=== PATIENT | female | born 1950 | race African-American/Black ===

== ENCOUNTER → 2016-06-28 | Outpatient (CLI) | payer MEDICARE, MEDICAID ==
[~2016-06-28] MED LIST: ALBUTEROL SULF8.5 GM INH; AMLODIPINE BESY10 MG ORAL; AMOXICILLIN500 MG ORAL; AMOXICILLIN875 MG PO; ASPIR 8181 MG ORAL; CALCIUM CARBON650 M3 PO; CRESTOR10 M2 ORAL; DIPHENHYDRAMINE25 M1 ORAL; DOC-Q-LACE100 M1 ORAL; ENALAPRIL MALEA20 MG ORAL; FOLIC ACID1 MG ORAL; GABAPENTIN300 MG ORAL; GLIPIZIDE XL5 MG ORAL; IBUPROFEN600 MG ORAL; IMIPRAMINE HCL25 MG PO; KOMBIGLYZE XR1 EACH PO; LORAZEPAM1 MG ORAL; MELOXICAM7.5 MG PO; NITROSTAT0.4 M1 SL; NORCO 5-325 TA1 EACH ORAL; OMEPRAZOLE20 M2 ORAL; ONDANSETRON ODT4 MG ORAL; PERCOCET 10-321 EACH ORAL; PHENERGAN25 M1 ORAL; PROTONIX40 MG ORAL; SERTRALINE HCL50 MG ORAL; SYMBICORT 1601 PUFFS INH; TOPIRAMATE25 MG ORAL; ZOFRAN ODT4 MG ORAL; ZOLPIDEM TARTRA10 MG ORAL
--- NOTE | 2016-06-28 15:59 | GI Progress Note ---
Assessment/Plan Problems: (1) IBS (irritable bowel syndrome) ICD Codes: K58.9 - Irritable bowel syndrome without diarrhea SNOMED: 35560510, 36878508 (2) COPD (chronic obstructive pulmonary disease) ICD Codes: J44.9 - COPD (chronic obstructive pulmonary disease) SNOMED: 32883927 (3) Diabetes mellitus ICD Codes: E11.9 - Diabetes mellitus SNOMED: 85742810 (4) Intractable vomiting ICD Codes: R11.10 - Vomiting, unspecified SNOMED: 438738841 (5) Abdominal pain Status: stable Status Narrative Seen with Dr. Garcia. Assessment/Plan pt scheduled for EGD/colonoscopy 07/02/16 - CLD & [employer] prep instructions given and acknowledged. - NPO MN prior to procedure date. Subjective Subjective GERD Diarrhea, with hx of IBS-D Abdominal Bloating here to schedule repeat colonoscopy Objective T 97.8 BP 127/83 P 98 98 RA Weight (Pounds): 211 General Appearance: no apparent distress, alert Cardiovascular: normal rate Respiratory/Chest: accessory muscle use, other - COPD Abdominal Exam: normal bowel sounds, non tender, soft Extremities: other - ambulates short distances with SOB Objective intentional weight loss Liss Moy N.P. Jun 28, 2016 15:59
[2016-06-28 16:06] VITALS: BP 127/83
== END | disposition home or self-care (01) ==
LOC: PAN 14:21
DX: K58.9 Irritable bowel syndrome, unspecified (principal); J44.9 Chronic obstructive pulmonary disease, unspecified; E11.9 Type 2 diabetes mellitus without complications; R11.10 Vomiting, unspecified
CPT/HCPCS: 99211

== ENCOUNTER → 2016-07-02 | Day surgery (SDC) | payer MEDICARE, MEDICAID ==
[~2016-07-02] VITALS: Ht 170.2 cm; Wt 94.8 kg
[2016-07-02] VITALS (8 sets, daily range): BP systolic 112–144; BP diastolic 64–82
[~2016-07-02] MED LIST changes: +DiphenhydrAMINE 50mg/ml Inj IVP PRN; +LR 1000ml 1,000 ML IVLG SCH; +LR 1000ml ONE; +Labetalol 5mg/ml 20ml vial IV PRN; +Lidocaine 1% MPF 10mg/ml 5ml ONE; +Propofol 10mg/ml 20ml IV ONE
--- NOTE | 2016-07-02 08:03 | Anethesia Preoperative Eval ---
Anesthesia Pre-op PMH/ROS General Date of Evaluation: Jul 02, 2016 Anesthesiologist: Deepak ASA Score: ASA 3 Mallampati Score Class I : Soft palate, uvula, fauces, pillars visible Class II: Soft palate, uvula, fauces visible Class III: Soft palate, base of uvula visible Class IV: Only hard plate visible Mallampati Classification: Class III Surgeon: Radha Diagnosis: Screening Surgical Procedure: EGD and colonoscopy Anesthesia History: none Family History: no anesthesia problems Allergies: Coded Allergies: SIMVASTATIN (Verified Allergy, Severe, 04/01/14) ESTROGENS, CONJUGATED (Verified Allergy, Intermediate, 07/02/16) PALMS OF HANDS AND FEET TURN RED,ITCHING WITH BLISTERS Uncoded Allergies: red meat (Allergy, Severe, 01/29/14) pt has diverticulitis and gets severe nausea and vomiting Medications: see eMAR Past Medical History Cardiovascular: Reports: CAD, HTN, other - HLD, Denies: IA, arrhythmia, valve dz Pulmonary: Reports: COPD, asthma, Denies: MARGRET, other Gastrointestinal/Genitourinary: Reports: GERD, Denies: CRI, ESRD, other Neurologic/Psychiatric: Reports: CVA, depression/anxiety, other - epilepsy, Denies: TIA, dementia Endocrine: Denies: DM, hypothyroidism, other, steroids HEENT: Denies: [place] (L[place] (R), cataract (L), cataract (R), glaucoma, other Hematology/Immune: Reports: anemia, Denies: DVT, bleeding disorder, other Musculoskeletal/Integumentary: Reports: OA, Denies: DDD, DJD, RA, edema, other Other: obesity PSxH Narrative: BENSON, BTL, lassik Anesthesia Pre-op Phys. Exam Physician Exam see chart Constitutional: NAD Cardiovascular: RRR Respiratory: CTA Airway Exam Mallampati Score: Class II Anesthesia Pre-op A/P Labs see chart Studies Pre-op Studies: EKG - sr Risk Assessment & Plan Assessment: ASA III Plan: MAC Status Change Before Surgery: No Pre-Antibiotics Drug: N/A MARILYNN NATH M.D. Jul 02, 2016 08:03
--- NOTE | 2016-07-02 08:13 | Immediate Post-Op Evaluation ---
Immediate Post-Op Evalulation Immediate Post-Op Evalulation Procedure: EGD and colonoscoopy Date of Evaluation: Jul 02, 2016 Time of Evaluation: 10:38 IV Fluids: 600 Blood Products: 0 Estimated Blood Loss: 0 Urinary Output: 0 Blood Pressure Systolic: 129 Blood Pressure Diastolic: 86 Pulse Rate: 76 Respiratory Rate: 17 O2 Sat by Pulse Oximetry: 100 Temperature (Fahrenheit): 97.3 Pain Score (1-10): 0 Nausea: No Vomiting: No Complications 0 Patient Status: awake, reacts, patent, none Hydration Status: adequate Drug: N/A MARILYNN NATH M.D. Jul 02, 2016 08:13
--- NOTE | 2016-07-02 08:13 | 48 Hour Post Anesthesia Eval ---
Post Anesthesia Evaluation Procedure: EGD and colonoscoopy Date of Evaluation: Jul 02, 2016 Blood Pressure Systolic: 144 0: 64 Pulse Rate: 76 Respiratory Rate: 18 O2 Sat by Pulse Oximetry: 98 Airway: patent Nausea: No Vomiting: No Pain Intensity: 0 Hydration Status: adequate Cardiopulmonary Status: at baseline Mental Status/LOC: patient returned to baseline Post-Anesthesia Complications: 0 Follow-up care needed: ready to discharge MARILYNN NATH M.D. Jul 02, 2016 08:13
--- NOTE | 2016-07-02 09:41 | Short Stay Surgery H&P ---
History of Present Illness History of Present Illness Chief Complaint see recent office consult LAURA Mariola Brush is a 66 year old female who was admitted on for Abdominal Pain ,Diarrhea Patient History Allergies: Coded Allergies: SIMVASTATIN (Verified Allergy, Severe, 04/01/14) ESTROGENS, CONJUGATED (Verified Allergy, Intermediate, 07/02/16) PALMS OF HANDS AND FEET TURN RED,ITCHING WITH BLISTERS Uncoded Allergies: red meat (Allergy, Severe, 01/29/14) pt has diverticulitis and gets severe nausea and vomiting PAST MEDICAL HISTORY: Past Surgeries: Social History: Medication History Scheduled Amlodipine Besylate* (Amlodipine Besylate*), 10 MG ORAL DAILY, (Reported) Aspirin* (Aspir 81*), 81 MG ORAL DAILY, (Reported) Calcium Carbonate (Calcium Carbonate), 650 MG PO DAILY, (Reported) Docusate Sodium (Doc-Q-Lace), 100 MG ORAL DAILY, (Reported) Enalapril Maleate* (Enalapril Maleate*), 20 MG ORAL DAILY, (Reported) Folic Acid* (Folic Acid*), 1 MG ORAL DAILY, (Reported) Gabapentin* (Gabapentin*), 300 MG ORAL THREE TIMES A DAY, (Reported) Pantoprazole* (Protonix*), 40 MG ORAL DAILY, (Reported) Saxagliptin Hcl/Metformin Hcl (Kombiglyze Xr 2.5-1,000 Mg Tab), 1 EACH PO DAILY, (Reported) Topiramate* (Topamax*), 25 MG ORAL BID, (Reported) Scheduled PRN Albuterol Sulfate* (Albuterol Sulfate Mdi*), 2 PUFF INH Q4H PRN for Shortness of Breath, (Reported) Diphenhydramine Hcl* (Diphenhydramine Hcl*), 25 MG ORAL Q6H PRN for Itching, ( Reported) Zolpidem Tartrate* (Zolpidem Tartrate*), 10 MG ORAL BEDTIME PRN for Insomnia, ( Reported) Discontinued Medications Amoxicillin (Amoxicillin), 875 MG PO Q12H Discontinued Reason: Therapy completed Amoxicillin* (Amoxil*), 500 MG ORAL THREE TIMES A DAY Discontinued Reason: Therapy completed Budesonide/Formoterol Fumarate (Symbicort 160-4.5 Mcg Inhaler), 1 PUFF INH TWICE A DAY, (Reported) Discontinued Reason: Pt stopped taking med Glipizide (Glipizide Xl), 5 MG ORAL DAILY, (Reported) Discontinued Reason: Pt stopped taking med Ibuprofen* (Motrin*), 600 MG ORAL Q8H PRN for For Pain Discontinued Reason: Pt stopped taking med Imipramine Hcl (Imipramine Hcl), 25 MG PO DAILY, (Reported) Discontinued Reason: Pt stopped taking med Meloxicam* (Meloxicam*), 7.5 MG PO DAILY, (Reported) Discontinued Reason: Pt stopped taking med Nitroglycerin (Nitrostat), 0.4 MG SL for Prn Chest Pain, (Reported) Discontinued Reason: Pt stopped taking med Sertraline Hcl* (Zoloft*), 50 MG ORAL DAILY, (Reported) Discontinued Reason: Pt stopped taking med Physical Exam Vital Signs Last Vital Signs Date Time Temp Pulse Resp B/P Pulse Ox O2 Delivery O2 Flow Rate FiO2 07/02/16 08:44 97.6 72 18 112/69 95 Room Air Plan Attestation Are the patient's medical conditions optimized for surgery? FRANTZ LANDON Jul 02, 2016 09:41
--- NOTE | 2016-07-02 09:41 | Pre-Procedure Note/Attestation ---
Pre-Procedure Note/Attestation Complete Prior to Procedure Planned Procedure: not applicable Procedure Narrative: egd/colonoscopy Indications for Procedure Pre-Operative Diagnosis: gerd, screening colon, Attestation I attest that I discussed the nature of the procedure; its benefits; risks and complications; and alternatives (and the risks and benefits of such alternatives ), prior to the procedure, with the patient (or the patient's legal veterans employment representative). I attest that, if there was a reasonable possibility of needing a blood transfusion, the patient (or the patient's legal veterans employment representative) was given the [facility] standardized written summary, pursuant to the [place] Blood Safety Act ([place] Health and Safety Code # 1645, as amended). I attest that I re-evaluated the patient just prior to the surgery and that there has been no change in the patient's H&P, except as documented below: FRANTZ LANDON Jul 02, 2016 09:41
--- NOTE | 2016-07-02 09:56 | Cardiology Report ---
APPROVED REPORT EKG Measurement Heart [id number] Normal sinus rhythm Normal ECG
--- NOTE | 2016-07-02 10:30 | Endoscopy Procedure Note ---
Endoscopy Procedure Note Indication for Procedure: screening colon, GERD Procedures Performed: EGD, colonoscopy Operative Findings/Diagnosis: 5 colon polyps Specimen: yes Pt Tolerated Procedure Well: Yes Estimated Blood Loss: none Anesthesiologist: sherry Anesthesia: MAC Implant(s) used?: No 50 yrs or older w/o bx or poly: No 10yrs. F/U not recommended: Yes If not recommended, why?: Above average risk 10 yrs. F/U needed: Yes 18 years or older w/prev. colo: Yes <3yrs. since last colonoscopy: No FRANTZ LANDON Jul 02, 2016 10:30
--- NOTE | 2016-07-02 20:38 | Procedure Note ---
DATE OF PROCEDURE: 07/02/2016 SURGEON: Syed Garcia M.D. PROCEDURE: Upper endoscopy with biopsy and colonoscopy with biopsy and snare polypectomy. ANESTHESIA: Dr. Debbie Sotelo. INSTRUMENT: Olympus adult flexible upper endoscope and colonoscope INDICATION: Screening colonoscopy, history of colonic polyps, and chronic acid reflux disease. The procedure, risks, benefits, and possible consequences, including hemorrhage, aspiration, perforation and infection, and alternative treatments, were explained to the patient/legal guardian by Dr. Syed Garcia and the patient/legal guardian understood and accepted these risks. DESCRIPTION OF PROCEDURE: After informed consent was obtained and the patient was adequately sedated, Olympus upper endoscope was advanced from mouth into the second portion of the duodenum and retroflexion was performed in the stomach. The patient had multiple antral erosions. There was diffuse gastritis. In the esophagus, there was suspicious Cherry esophagitis. Random biopsy from antrum and body was obtained to rule out H. pylori infection. Also brushing of the esophageal white patches were obtained to evaluate for Cherry esophagitis. At this time, the upper endoscope was retrieved and the patient was turned over for colonoscopy. First, rectal exam was performed, which shows evidence of external hemorrhoids. Then, the scope was advanced from the rectum into the cecum documented by appendiceal orifice, ileocecal valve, upper quadrant palpation. Quality of prep was fair. The patient had diffuse melanosis coli. There were total of five polyps removed with this colonoscopic examination, two in ascending and two in transverse, which were all removed with the cold biopsy forceps technique and they were diminutive polyps. A larger polyp was in the rectum, measured roughly about 4 to 5 mm, removed with cold snare polypectomy technique. The patient had evidence of diverticulosis mostly in the left colon compared to right. Retroflexion of rectum showed evidence of internal hemorrhoids. SUMMARY OF FINDINGS: 1. Multiple antral erosions. 2. Possible Cherry esophagitis, status post brush biopsy. 3. Five colonic polyps removed. See above for details. 4. Diverticulosis. 5. Melanosis coli. 6. Internal and external hemorrhoids. RECOMMENDATIONS: Follow up biopsies and treat accordingly. Syed Garcia M.D. DR: MISSY JOB#: [id number] CC: LIEN
== END | disposition home or self-care (01) ==
LOC: GAS 07:56
DX: Z12.11 Encounter for screening for malignant neoplasm of colon (principal); Z86.010 Personal history of colon polyps; D12.2 Benign neoplasm of ascending colon; D12.3 Benign neoplasm of transverse colon; D12.8 Benign neoplasm of rectum; K57.30 Diverticulosis of large intestine without perforation or abscess without bleeding; K63.89 Other specified diseases of intestine; K64.8 Other hemorrhoids; K64.4 Residual hemorrhoidal skin tags; K21.9 Gastro-esophageal reflux disease without esophagitis; K29.70 Gastritis, unspecified, without bleeding; K25.9 Gastric ulcer, unspecified as acute or chronic, without hemorrhage or perforation; K31.9 Disease of stomach and duodenum, unspecified; I25.10 Atherosclerotic heart disease of native coronary artery without angina pectoris; I10 Essential (primary) hypertension; E78.5 Hyperlipidemia, unspecified; J44.9 Chronic obstructive pulmonary disease, unspecified; J45.909 Unspecified asthma, uncomplicated; F32.9 Major depressive disorder, single episode, unspecified; F41.9 Anxiety disorder, unspecified; G40.909 Epilepsy, unspecified, not intractable, without status epilepticus; D64.9 Anemia, unspecified; M19.90 Unspecified osteoarthritis, unspecified site; E66.9 Obesity, unspecified; Z90.710 Acquired absence of both cervix and uterus; Z91.018 Allergy to other foods; Z91.09 Other allergy status, other than to drugs and biological substances; Z79.82 Long term (current) use of aspirin; Z79.899 Other long term (current) drug therapy
CPT/HCPCS: 43239; 45380; 45385; 82962; 93005; J2704; J7120; 94003; 94150

== ENCOUNTER → 2016-07-17 | Outpatient (CLI) | payer MEDICARE, MEDICAID ==
[~2016-07-17] MED LIST changes: -DiphenhydrAMINE 50mg/ml Inj IVP PRN; -LR 1000ml 1,000 ML IVLG SCH; -LR 1000ml ONE; -Labetalol 5mg/ml 20ml vial IV PRN; -Lidocaine 1% MPF 10mg/ml 5ml ONE; -Propofol 10mg/ml 20ml IV ONE
[2016-07-17 10:55] VITALS: BP 125/86
--- NOTE | 2016-07-17 12:08 | GI Progress Note ---
Assessment/Plan Problems: (1) Abdominal pain (2) IBS (irritable bowel syndrome) ICD Codes: K58.9 - Irritable bowel syndrome without diarrhea SNOMED: 56737991, 61443755 (3) Nausea, vomiting, and diarrhea ICD Codes: R19.7 - Diarrhea, unspecified; R11.2 - Nausea with vomiting, unspecified SNOMED: 1757521 (4) Colonic polyp ICD Codes: K63.5 - Polyp of colon SNOMED: 98323201 (5) Bari esophagitis ICD Codes: B37.81 - Candidal esophagitis SNOMED: 24370265 Status: stable Status Narrative Seen with Dr. Garcia. Assessment/Plan EGD/colonoscopy reviewed >> colon polyp x 5 rx linzess rx carafate cont protonix rx diflucan for esophageal bari RTC x 3 months repeat colon x 3 years The patient was seen and examined at bedside and all new and available data was reviewed in the patients chart. I agree with the above findings, impression and plan. (Patient seen earlier today. Signature stamp does not reflect patient encounter time.). -Syed Garcia MD Subjective Subjective GERD Objective Last 24 Hour Vital Signs Date Time Temp Pulse Resp B/P Pulse Ox O2 Delivery O2 Flow Rate FiO2 07/17/16 10:55 97.8 78 16 125/86 General Appearance: no apparent distress, alert Cardiovascular: normal rate Respiratory/Chest: normal breath sounds, no respiratory distress Abdominal Exam: normal bowel sounds, non tender, soft Extremities: other - wheelchair Objective Endoscopy Procedure Note Indication for Procedure: screening colon, GERD Procedures Performed: EGD, colonoscopy Operative Findings/Diagnosis: 5 colon polyps SYED GARCIA - Jul 02, 2016 10:30 Hx of PUD, gastric erosion, gastropathy, fungal esophagitis Liss Moy N.P. Jul 17, 2016 12:08 SYED GARCIA Jul 20, 2016 08:01
== END | disposition home or self-care (01) ==
LOC: PAN 10:31
DX: K58.9 Irritable bowel syndrome, unspecified (principal); R10.9 Unspecified abdominal pain; R19.7 Diarrhea, unspecified; R11.2 Nausea with vomiting, unspecified; K63.5 Polyp of colon; B37.81 Candidal esophagitis
CPT/HCPCS: 99211

== ENCOUNTER 2016-10-16 10:35 | Outpatient (CLI) | payer MEDICARE, MEDICAID ==
--- NOTE | 2016-10-16 15:56 | GI Progress Note ---
Assessment/Plan Problems: (1) Abdominal pain (2) Cherry esophagitis ICD Codes: B37.81 - Candidal esophagitis SNOMED: 07577513 (3) Colonic polyp ICD Codes: K63.5 - Polyp of colon SNOMED: 81622672 (4) IBS (irritable bowel syndrome) ICD Codes: K58.9 - Irritable bowel syndrome without diarrhea SNOMED: 93553971, 15596285 (5) Nausea, vomiting, and diarrhea ICD Codes: R19.7 - Diarrhea, unspecified; R11.2 - Nausea with vomiting, unspecified SNOMED: 7714680 Status: stable Status Narrative Discussed with Dr. Garcia. Assessment/Plan EGD/colonoscopy reviewed >> colon polyp x 5 s/p esophageal cherry tx with Diflucan refill linzess linzess stop carafate cont protonix RTC x 3 months repeat colon x 3 years Subjective Subjective abdominal bloating linzess x 1 month worked very well stopped smoking for 2 weeks, on Chantix abdominal distention last BM x 5 days Objective T 98.3 BP 121/81 P 85 95 RA denies weight loss General Appearance: no apparent distress, alert Cardiovascular: normal rate Respiratory/Chest: normal breath sounds, no respiratory distress Abdominal Exam: normal bowel sounds, non tender, soft Extremities: normal range of motion Liss Moy N.P. Oct 16, 2016 15:56
== END 2016-10-16 11:00 | disposition home or self-care (01) ==
LOC: PAN 10:35
DX: R10.9 Unspecified abdominal pain (principal); K63.5 Polyp of colon; K58.9 Irritable bowel syndrome, unspecified; R19.7 Diarrhea, unspecified; B37.81 Candidal esophagitis
CPT/HCPCS: 99211

== ENCOUNTER 2016-10-26 11:18 | Inpatient (IN) | payer MEDICARE, MEDICAID ==
[~2016-10-26] VITALS: Ht 170.2 cm; Wt 97.5 kg
[2016-10-26 12:30] VITALS: BP 131/77
--- NOTE | 2016-10-26 13:22 | History & Physical ---
History and Physical History & Physicial Vital Signs -Extended Height: 67 inches Weight: 215.5 pounds Temperature: 97.8 degrees F (oral) Pulse rate: 81 /min Pulse rhythm: regular Respirations: 12 /min O2 Sat: 97% Blood Pressure: 135/77 mm Hg Calculations Body Mass Index: 33.87 Body Surface Area (m2): 2.09 History of Present Illness Hx. Source: patient Primary complaint: FOLLOW UP Additional HPI: 66 year old female patient presents today for follow up appointment for her COPD. Patient reports a low grade fever, dizzy spells, and light headed. Patient is taking her prescribed medications as directed and is compliant. she notes significant leg swelling. she notes increase numbness Active Medications (reviewed today): CHANTIX STARTING MONTH SULY TABS (VARENICLINE TARTRATE TABS) as directed GARCINIA CAMBOGIA-CHROMIUM TABS (GARCINIA CAMBOGIA-CHROMIUM TABS) Take one tablet daily OXYCODONE HCL 30 MG ORAL TABS (OXYCODONE HCL) Take one tablet every 6 hours FLUTICASONE PROPIONATE 50 MCG/ACT NASAL SUSP (FLUTICASONE PROPIONATE) 2 puff qd CRESTOR 10 MG TABS (ROSUVASTATIN CALCIUM) 1 PO QD FARXIGA 10 MG ORAL TABS (DAPAGLIFLOZIN PROPANEDIOL) 1 tab qd ALBUTEROL SULFATE 0.083 % NEBU (ALBUTEROL SULFATE) 1 vial in HHN every 4 times daily prn SYMBICORT 160-4.5 MCG/ACT AERO (BUDESONIDE-FORMOTEROL FUMARATE) 2 puffs bid CENTRUM SILVER ULTRA WOMENS ORAL TABS (MULTIPLE VITAMINS-MINERALS) Take one tablet daily ASPIRIN ADULT LOW STRENGTH 81 MG ORAL TBEC (ASPIRIN) Take one tablet daily ZOLPIDEM TARTRATE 10 MG ORAL TABS (ZOLPIDEM TARTRATE) Take one tablet daily KOMBIGLYZE XR 2.5-1000 MG ORAL [id number] (SAXAGLIPTIN-METFORMIN) Take one tablet two times daily AMLODIPINE BESYLATE 10 MG ORAL TABS (AMLODIPINE BESYLATE) 1 tab qd FOLIC ACID 1 MG TABS (FOLIC ACID) 1 by mouth every day DIPHENHYDRAMINE HCL 25 MG ORAL CAPS (DIPHENHYDRAMINE HCL) 1 PO Q12 PRN TOPIRAMATE 100 MG TABS (TOPIRAMATE) 1 tab bid ENALAPRIL MALEATE 20 MG TABS (ENALAPRIL MALEATE) 1 tab qd CARISOPRODOL 350 MG TABS (CARISOPRODOL) 1 tab po bid, prn MECLIZINE HCL 25 MG TABS (MECLIZINE HCL) 1 by mouth DIPHENHYDRAMINE HCL 25 MG ORAL TABS (DIPHENHYDRAMINE HCL) 1 qd CILOSTAZOL 50 MG ORAL TABS (CILOSTAZOL) Take one tablet daily DOCQLACE 100 MG ORAL CAPS (DOCUSATE SODIUM) Take one tablet daily GABAPENTIN 300 MG CAPS (GABAPENTIN) 1 tab po tid LORATADINE 10 MG TABS (LORATADINE) 1 tab po prn Current Allergies (reviewed today): * ZOCOR (Critical) * ESTROGEN (Critical) Past History Past Medical History (reviewed - no changes required): COPD Asthma CAD Diverticulitis Diabetes Neuropathy lumbar disc disease and cervical disc disease Surgical History (reviewed - no changes required): Left wrist surgery Tubal ligation 1973 Hysterectomy Family History (reviewed - no changes required): Father ; Lung cancer Mother alive; healthy; heart attach Social History (reviewed - no changes required): Engaged; 3 children: lives with fiance; born in [place] [employer] Risk Factors: Smoked Tobacco Use: Former smoker Cigarettes: Yes -- 3 packs pack(s) per day, Year started: 1963 Caffeine use: 1 drinks per day Alcohol use: yes Type: wine Review of Systems Cardiovascular: angina, CAD Musculoskeletal: using wheelchair Neurologic: back pain neuropathy Physical Exam General Appearance: well nourished, well hydrated, no acute distress Ear, Nose &Throat External Ears: normal, no lesions or deformities External Nose: normal, no lesions or deformities Hearing: grossly intact Respiratory Respiratory Effort: no intercostal retractions or use of accessory muscles Palpation: normal fremitus Auscultation: no rales, rhonchi, or wheezes Cardiovascular Palpation: no thrill or palpable murmurs, no displacement of PMI Auscultation: S1, S2, no murmur, rub, or gallop Peripheral Circulation: some edema reduced pulses Musculoskeletal Gait and Station: motorized wheelchair difficulty walking Assessment dizziness leg edema ALOC COPD Asthma Diabetes shortness of breath Failure to thrive Plan admit obtain labs and cxr obtain venous US obtain magnesium level respiratory treatments pain control and pain management head CT and ecg follow up exam closely TESSA PALACIOS Oct 26, 2016 13:22
[2016-10-26] MEDS ORDERED: HYDROmorphone 1mg/ml Carpuject IVP PRN (14:00)
[2016-10-26] MEDS ORDERED: DuoNeb 0.5-3(2.5)mg/3ml neb HHN PRN (14:00)
[2016-10-26] MEDS ORDERED: Meclizine 25mg tab ORAL PRN (14:15)
[2016-10-26 14:21] LABS: ABG ALLEN TEST POSITIVE; ABG BASE EXCESS -3.8; ABG PCO2 39.1 mmHg (35.0-45.0)
--- NOTE | 2016-10-26 14:31 | Diagnostic Imaging Report ---
Indications: Shortness of breath, COPD Technique: Portable AP chest Findings: Comparison: 05/19/2013 Cardiac silhouette remains normal in size. Pulmonary vasculature remains within normal limits. Linear densities persist in the lateral aspect of left lower lung. Lungs and pleura remain otherwise clear. Mild elongation of the aortic arch, thoracic vertebral osteophytes and mild scoliosis are unchanged.. IMPRESSION: No evidence of acute disease, unchanged Stable chronic changes as described
[2016-10-26] MEDS: Solu-MEDROL 40mg Inj IVP SCH ×2 (14:47→20:23)
[2016-10-26] MEDS ORDERED: Pneumococcal Vaccine 25mcg/0.5ml IM ONE (15:00)
[2016-10-26] MEDS: DuoNeb 0.5-3(2.5)mg/3ml neb HHN SCH ×3 (15:00→22:58)
[2016-10-26] MEDS: cefTRIAXone 1 GM in D5W 55 ML IVPB SCH (15:21)
[2016-10-26] MEDS: DiphenhydrAMINE 50mg/ml Inj IVP PRN ×2 (15:30→20:40)
[2016-10-26 15:31] LABS: BASOPHILS % (AUTO) 1.5 % (0.0-2.0); EOSINOPHILS % (AUTO) 0.8 % (0.0-3.0); LYMPHOCYTES % (AUTO) 27.9 % (20.0-45.0); MEAN CORPUSCULAR HEMOGLOBIN 26.1 PG (27.0-31.0); MEAN CORPUSCULAR HGB CONC 31.3 G/DL (32.0-36.0); MEAN CORPUSCULAR VOLUME 83 FL (80-99); MEAN PLATELET VOLUME 6.2 FL (6.5-10.1); MONOCYTES % (AUTO) 5.5 % (1.0-10.0); NEUTROPHILS % (AUTO) 64.3 % (45.0-75.0); PLATELET COUNT 278 K/UL (150-450); RED BLOOD COUNT 4.86 M/UL (4.20-5.40); WHITE BLOOD COUNT 6.8 K/UL (4.8-10.8)
[2016-10-26 15:48] LABS: ANION GAP 19 (5-15); CALCIUM 9.4 mg/dL (8.6-10.2); CARBON DIOXIDE 21 mEQ/L (20-30); CHLORIDE 97 mEQ/L (98-107); GLOMERULAR FILTRATION RATE > 60 mL/min (>60); HEMOLYSIS 2; POTASSIUM 3.7 mEQ/L (3.4-4.9); SODIUM 137 mEQ/L (135-145)
[2016-10-26 16:10] VITALS: BP 122/71
[2016-10-26] MEDS: NovoLOG Insulin Flexpen SUBQ SCH ×2 (16:35→20:41)
[2016-10-26] MEDS: Flonase Nasal Inhaler 16gm NASAL SCH (18:00)
[2016-10-26] MEDS: Topiramate 100mg tab ORAL SCH (20:24)
[2016-10-26] MEDS: Heparin 5000 units/ml inj SUBQ SCH (20:25)
[2016-10-26 21:06] VITALS: BP 130/77
[2016-10-27] VITALS: BP 127/73
[2016-10-27] MEDS: DuoNeb 0.5-3(2.5)mg/3ml neb HHN SCH ×6 (03:00→23:34)
[2016-10-27] MEDS: Solu-MEDROL 40mg Inj IVP SCH ×3 (04:57→21:44)
[2016-10-27] MEDS: DiphenhydrAMINE 50mg/ml Inj IVP PRN ×4 (04:57→22:02)
[2016-10-27] MEDS: NovoLOG Insulin Flexpen SUBQ SCH ×4 (06:12→21:48)
[2016-10-27] MEDS: Cilostazol 100mg tab ORAL SCH (07:55)
[2016-10-27 08:00] VITALS: BP 159/104
--- NOTE | 2016-10-27 08:36 | Pulmonology Progress Note ---
Assessment/Plan Assessment/Plan Assessment dizziness leg edema ALOC COPD Asthma Diabetes shortness of breath Failure to thrive Plan reviewed labs and cxr await venous US respiratory treatments and oxygen pain control and pain management head CT to follow monitor clinically and dc once stable follow up exam closely Subjective Allergies: Coded Allergies: SIMVASTATIN (Verified Allergy, Severe, 04/01/14) ESTROGENS, CONJUGATED (Verified Allergy, Intermediate, 07/02/16) PALMS OF HANDS AND FEET TURN RED,ITCHING WITH BLISTERS Uncoded Allergies: red meat (Allergy, Severe, 01/29/14) pt has diverticulitis and gets severe nausea and vomiting Subjective still with pain with sob Objective Last 24 Hour Vital Signs Date Time Temp Pulse Resp B/P Pulse Ox O2 Delivery O2 Flow Rate FiO2 10/27/16 08:00 97.0 86 20 159/104 95 Room Air 10/27/16 07:45 Room Air 10/27/16 07:44 Room Air 10/27/16 07:44 Room Air 10/27/16 07:44 Room Air 10/27/16 07:44 Room Air 10/27/16 03:36 Room Air 10/27/16 03:36 Room Air 10/27/16 00:00 97.4 86 18 127/73 97 Room Air 10/26/16 22:59 Room Air 10/26/16 22:59 Room Air 10/26/16 21:06 97.3 94 20 130/77 96 Room Air 10/26/16 19:16 Room Air 10/26/16 19:16 Room Air 10/26/16 19:15 98 18 Room Air 10/26/16 19:14 Room Air 10/26/16 19:14 Room Air 10/26/16 16:22 97.0 10/26/16 16:10 97.0 85 16 122/71 98 Room Air 10/26/16 15:13 82 16 97 Room Air 21 10/26/16 15:13 82 16 97 Room Air 21 10/26/16 12:30 98.0 80 20 131/77 99 Room Air Intake and Output 10/26/16 10/27/16 19:00 07:00 Intake Total 910 ml 800 ml Balance 910 ml 800 ml Intake Oral 800 ml 800 ml IV Total 110 ml # Voids 2 4 # Bowel Movements 2 Objective WDWN NAD reduced breath sounds bilaterally without rhonchi or wheeze [id number] without MRG NABS nontender no HSM no CCE nonfocal alert and oriented x 3 Laboratory Tests 10/26/16 14:12: Arterial Blood pH 7.354, Arterial Blood Partial Pressure CO2 39.1, Arterial Blood Partial Pressure O2 65.5L, Arterial Blood HCO3 21.3L, Arterial Blood Oxygen Saturation 91.5L, Arterial Blood Base Excess -3.8, Romeo Test Positive 10/26/16 14:50: White Blood Count 6.8, Red Blood Count 4.86, Hemoglobin 12.7, Hematocrit 40.5, Mean Corpuscular Volume 83, Mean Corpuscular Hemoglobin 26.1L, Mean Corpuscular Hemoglobin Concent 31.3L, Red Cell Distribution Width 13.0, Platelet Count 278, Mean Platelet Volume 6.2L, Neutrophils (%) (Auto) 64.3, Lymphocytes (%) (Auto) 27.9, Monocytes (%) (Auto) 5.5, Eosinophils (%) (Auto) 0.8, Basophils (%) (Auto ) 1.5, Sodium Level 137, Potassium Level 3.7, Chloride Level 97L, Carbon Dioxide Level 21, Anion Gap 19H, Blood Urea Nitrogen 16, Creatinine 1.0H, Estimat Glomerular Filtration Rate > 60, Glucose Level 103, Calcium Level 9.4 Current Medications Medications (Trade) Dose Ordered Sig/Rosendo Route PRN Reason Start Time Stop Time Status Last Admin Dose Admin Acetaminophen (Tylenol) 650 mg Q4H PRN ORAL Mild Pain/Temp > 100.5 10/26/16 14:00 11/25/16 13:59 Al Hydroxide/Mg Hydroxide (Mylanta) 30 ml Q4HR PRN ORAL gastric upset 10/26/16 14:00 11/25/16 13:59 Albuterol/ Ipratropium (DuoNeb 0.5-3(2.5)mg/3ml) 3 ml Q4H PRN HHN Shortness of Breath 10/26/16 14:00 10/31/16 13:59 Albuterol/ Ipratropium (DuoNeb 0.5-3(2.5)mg/3ml) 3 ml Q4HRT HHN 10/26/16 15:00 10/31/16 14:59 Amlodipine Besylate (Norvasc) 10 mg DAILY ORAL 10/27/16 09:00 11/26/16 08:59 Aspirin (ASA) 81 mg DAILY NG 10/27/16 09:00 11/26/16 08:59 Atorvastatin Calcium (Lipitor) 40 mg BEDTIME ORAL 10/27/16 21:00 11/26/16 20:59 Budesonide/ Formoterol Fumarate (Symbicort 160/ 4.5) 2 puff TWICE A DAY INH 10/26/16 18:00 11/25/16 17:59 Carisoprodol (Soma) 350 mg BIDPRN PRN ORAL spasm 10/26/16 14:15 11/25/16 14:14 10/26/16 15:23 Ceftriaxone Sodium/Dextrose (Rocephin/D5W) 55 ml @ 110 mls/hr Q24H IVPB 10/26/16 15:00 11/02/16 14:59 10/26/16 15:21 Cetirizine HCl (ZyrTEC) 10 mg DAILY PRN ORAL ALLERGIES 10/26/16 14:30 11/25/16 14:29 Cilostazol (Pletal) 50 mg ACBREAKFAST ORAL 10/27/16 06:30 11/26/16 06:29 10/27/16 07:55 Dextrose (Dextrose 50%) STAT PRN IV Hypoglycemia 10/26/16 14:00 11/25/16 13:59 Diphenhydramine HCl (Benadryl) 25 mg Q4HR PRN IVP Itching 10/26/16 14:15 11/25/16 14:14 10/27/16 04:57 Docusate Sodium (Colace) 100 mg DAILY ORAL 10/27/16 09:00 11/26/16 08:59 Enalapril Maleate (Vasotec) 20 mg DAILY ORAL 10/27/16 09:00 11/26/16 08:59 Fluticasone Propionate (Flonase) 2 spray DAILY NASAL 10/26/16 18:00 11/25/16 17:59 Folic Acid (Folate) 1 mg DAILY ORAL 10/27/16 09:00 11/26/16 08:59 Gabapentin (Neurontin) 300 mg THREE TIMES A DAY ORAL 10/26/16 18:00 11/25/16 17:59 10/26/16 17:01 Heparin Sodium (Porcine) (Heparin 5000 units/ml) 5,000 units EVERY 12 HOURS SUBQ 10/26/16 21:00 11/25/16 20:59 10/26/16 20:25 Hydromorphone HCl (Dilaudid) 1 mg Q3HR PRN IVP moderate pain 10/26/16 14:00 11/02/16 13:59 Hydromorphone HCl (Dilaudid) 2 mg Q3HR PRN IVP severe pain 10/26/16 14:00 11/02/16 13:59 10/27/16 04:57 Insulin Aspart (NovoLOG) BEFORE MEALS AND HS SUBQ 10/26/16 16:30 11/25/16 16:29 10/27/16 06:12 Meclizine HCl (Antivert) 25 mg Q6H PRN ORAL for dizziness 10/26/16 14:15 11/25/16 14:14 Methylprednisolone Sodium Succinate 40 mg 40 mg EVERY 8 HOURS IVP 10/26/16 14:00 11/25/16 13:59 10/27/16 04:57 Multivitamins (Multivitamins) 1 tab DAILY ORAL 10/27/16 09:00 11/26/16 08:59 Ondansetron HCl (Zofran) 4 mg Q6H PRN IVP Nausea & Vomiting 10/26/16 14:00 11/25/16 13:59 Pantoprazole (Protonix) 40 mg DAILY ORAL 10/27/16 09:00 11/26/16 08:59 Patient Own Medication (Patient's Own Med) 1 ea BID ORAL 10/27/16 09:00 11/26/16 08:59 Topiramate (Topamax) 100 mg EVERY 12 HOURS ORAL 10/26/16 21:00 11/25/16 20:59 10/26/16 20:24 Zolpidem Tartrate (Ambien) 10 mg HSPRN PRN ORAL Insomnia 10/26/16 14:00 11/25/16 13:59 TESSA PALACIOS Oct 27, 2016 08:36
[2016-10-27] MEDS: Docusate 100mg cap ORAL SCH (08:53)
[2016-10-27] MEDS: Aspirin Baby 81mg NG SCH (08:53)
[2016-10-27] MEDS: Topiramate 100mg tab ORAL SCH ×2 (08:53→21:45)
[2016-10-27] MEDS: Flonase Nasal Inhaler 16gm NASAL SCH (08:55)
[2016-10-27] MEDS: Heparin 5000 units/ml inj SUBQ SCH ×2 (08:59→21:46)
[2016-10-27] MEDS: [UNRECOGNIZED DRUG - OTHER] ORAL SCH ×2 (09:25→17:38)
[2016-10-27] MEDS ORDERED: NS 275ml ONE (10:05)
[2016-10-27 12:00] VITALS: BP 142/78
[2016-10-27 16:00] VITALS: BP 146/96
[2016-10-27] MEDS: cefTRIAXone 1 GM in D5W 55 ML IVPB SCH (16:35)
[2016-10-27 20:00] VITALS: BP 133/78
[2016-10-27] MEDS: Zolpidem 5mg tab ORAL PRN (21:45)
[2016-10-28] VITALS: BP 126/78
[2016-10-28] MEDS: DuoNeb 0.5-3(2.5)mg/3ml neb HHN SCH ×6 (03:00→23:17)
[2016-10-28 04:00] VITALS: BP 127/77
[2016-10-28] MEDS: DiphenhydrAMINE 50mg/ml Inj IVP PRN ×5 (05:22→22:09)
[2016-10-28] MEDS: Solu-MEDROL 40mg Inj IVP SCH ×3 (05:32→20:51)
[2016-10-28] MEDS: Cilostazol 100mg tab ORAL SCH (05:33)
[2016-10-28] MEDS: NovoLOG Insulin Flexpen SUBQ SCH ×4 (05:35→21:00)
--- NOTE | 2016-10-28 07:22 | Pulmonology Progress Note ---
Assessment/Plan Assessment/Plan Assessment dizziness leg edema ALOC COPD Asthma Diabetes shortness of breath Failure to thrive Plan follow up for change await venous US respiratory treatments and oxygen as is pain control and pain management head CT await results monitor clinically and dc once stable follow up exam closely and hope to dc in am Subjective Allergies: Coded Allergies: SIMVASTATIN (Verified Allergy, Severe, 04/01/14) ESTROGENS, CONJUGATED (Verified Allergy, Intermediate, 07/02/16) PALMS OF HANDS AND FEET TURN RED,ITCHING WITH BLISTERS Uncoded Allergies: red meat (Allergy, Severe, 01/29/14) pt has diverticulitis and gets severe nausea and vomiting Subjective still with pain but better with sob improved Objective Last 24 Hour Vital Signs Date Time Temp Pulse Resp B/P Pulse Ox O2 Delivery O2 Flow Rate FiO2 10/28/16 04:00 97.6 94 20 127/77 97 Room Air 10/28/16 03:25 Room Air 10/28/16 03:25 Room Air 10/28/16 00:00 97.8 92 20 126/78 96 Room Air 10/27/16 23:50 91 16 100 Room Air 21 10/27/16 23:33 96 16 97 Room Air 21 10/27/16 20:15 85 16 100 Room Air 21 10/27/16 20:00 98.0 99 20 133/78 97 Room Air 10/27/16 19:49 105 16 97 Room Air 21 10/27/16 19:48 Room Air 10/27/16 19:48 Room Air 10/27/16 19:47 105 21 96 Room Air 10/27/16 16:00 97.5 92 20 146/96 93 Room Air 10/27/16 15:00 Room Air 10/27/16 15:00 Room Air 10/27/16 15:00 97.3 10/27/16 12:25 Room Air 10/27/16 12:25 Room Air 10/27/16 12:00 97.3 91 20 142/78 96 Room Air 10/27/16 11:00 Room Air 10/27/16 11:00 Room Air 10/27/16 09:55 97.0 10/27/16 08:54 86 159/104 10/27/16 08:54 159/104 10/27/16 08:00 97.0 86 20 159/104 95 Room Air 10/27/16 07:45 Room Air 10/27/16 07:44 Room Air 10/27/16 07:44 Room Air 10/27/16 07:44 Room Air 10/27/16 07:44 Room Air Intake and Output 10/27/16 10/28/16 19:00 07:00 Intake Total 420 ml 1000 ml Balance 420 ml 1000 ml Intake Oral 420 ml 1000 ml # Voids 4 3 Objective WDWN NAD improved breath sounds bilaterally without rhonchi or wheeze [id number] without MRG NABS nontender no HSM no CCE nonfocal alert and oriented x 3 less distress Microbiology Date/Time Source Procedure Growth Status 10/26/16 15:00 Sputum Expectorated Gram Stain - Final Resulted 10/26/16 15:00 Sputum Expectorated Sputum Culture - Preliminary NORMAL UPPER RESPIRATORY LAYLA AT 24 ... Resulted Current Medications Medications (Trade) Dose Ordered Sig/Rosendo Route PRN Reason Start Time Stop Time Status Last Admin Dose Admin Acetaminophen (Tylenol) 650 mg Q4H PRN ORAL Mild Pain/Temp > 100.5 10/26/16 14:00 11/25/16 13:59 Al Hydroxide/Mg Hydroxide (Mylanta) 30 ml Q4HR PRN ORAL gastric upset 10/26/16 14:00 11/25/16 13:59 Albuterol/ Ipratropium (DuoNeb 0.5-3(2.5)mg/3ml) 3 ml Q4H PRN HHN Shortness of Breath 10/26/16 14:00 10/31/16 13:59 Albuterol/ Ipratropium (DuoNeb 0.5-3(2.5)mg/3ml) 3 ml Q4HRT HHN 10/26/16 15:00 10/31/16 14:59 10/27/16 23:34 Amlodipine Besylate (Norvasc) 10 mg DAILY ORAL 10/27/16 09:00 11/26/16 08:59 10/27/16 08:54 Aspirin (ASA) 81 mg DAILY NG 10/27/16 09:00 11/26/16 08:59 10/27/16 08:53 Atorvastatin Calcium (Lipitor) 40 mg BEDTIME ORAL 10/27/16 21:00 11/26/16 20:59 Budesonide/ Formoterol Fumarate (Symbicort 160/ 4.5) 2 puff TWICE A DAY INH 10/26/16 18:00 11/25/16 17:59 10/27/16 17:38 Carisoprodol (Soma) 350 mg BIDPRN PRN ORAL spasm 10/26/16 14:15 11/25/16 14:14 10/27/16 08:56 Ceftriaxone Sodium/Dextrose (Rocephin/D5W) 55 ml @ 110 mls/hr Q24H IVPB 10/26/16 15:00 11/02/16 14:59 10/27/16 16:35 Cetirizine HCl (ZyrTEC) 10 mg DAILY PRN ORAL ALLERGIES 10/26/16 14:30 11/25/16 14:29 Cilostazol (Pletal) 50 mg ACBREAKFAST ORAL 10/27/16 06:30 11/26/16 06:29 10/28/16 05:33 Dextrose (Dextrose 50%) STAT PRN IV Hypoglycemia 10/26/16 14:00 11/25/16 13:59 Diphenhydramine HCl (Benadryl) 25 mg Q4HR PRN IVP Itching 10/26/16 14:15 11/25/16 14:14 10/28/16 05:22 Docusate Sodium (Colace) 100 mg DAILY ORAL 10/27/16 09:00 11/26/16 08:59 10/27/16 08:53 Enalapril Maleate (Vasotec) 20 mg DAILY ORAL 10/27/16 09:00 11/26/16 08:59 10/27/16 08:54 Fluticasone Propionate (Flonase) 2 spray DAILY NASAL 10/26/16 18:00 11/25/16 17:59 10/27/16 08:55 Folic Acid (Folate) 1 mg DAILY ORAL 10/27/16 09:00 11/26/16 08:59 10/27/16 08:54 Gabapentin (Neurontin) 300 mg THREE TIMES A DAY ORAL 10/26/16 18:00 11/25/16 17:59 10/27/16 17:38 Heparin Sodium (Porcine) (Heparin 5000 units/ml) 5,000 units EVERY 12 HOURS SUBQ 10/26/16 21:00 11/25/16 20:59 10/27/16 21:46 Hydromorphone HCl (Dilaudid) 1 mg Q3HR PRN IVP moderate pain 10/26/16 14:00 11/02/16 13:59 Hydromorphone HCl (Dilaudid) 2 mg Q3HR PRN IVP severe pain 10/26/16 14:00 11/02/16 13:59 10/28/16 05:22 Insulin Aspart (NovoLOG) BEFORE MEALS AND HS SUBQ 10/26/16 16:30 11/25/16 16:29 10/28/16 05:35 Meclizine HCl (Antivert) 25 mg Q6H PRN ORAL for dizziness 10/26/16 14:15 11/25/16 14:14 Methylprednisolone Sodium Succinate 40 mg 40 mg EVERY 8 HOURS IVP 10/26/16 14:00 11/25/16 13:59 10/28/16 05:32 Multivitamins (Multivitamins) 1 tab DAILY ORAL 10/27/16 09:00 11/26/16 08:59 10/27/16 08:53 Ondansetron HCl (Zofran) 4 mg Q6H PRN IVP Nausea & Vomiting 10/26/16 14:00 11/25/16 13:59 Pantoprazole (Protonix) 40 mg ACBREAKFAST ORAL 10/28/16 06:30 11/27/16 06:29 10/28/16 05:33 Patient Own Medication (Patient's Own Med) 1 ea BID ORAL 10/27/16 09:00 11/26/16 08:59 10/27/16 17:38 Topiramate (Topamax) 100 mg EVERY 12 HOURS ORAL 10/26/16 21:00 11/25/16 20:59 10/27/16 21:45 Zolpidem Tartrate (Ambien) 10 mg HSPRN PRN ORAL Insomnia 10/26/16 14:00 11/25/16 13:59 10/27/16 21:45 TESSA PALACIOS Oct 28, 2016 07:22
[2016-10-28 08:00] VITALS: BP 148/83
[2016-10-28] MEDS: [UNRECOGNIZED DRUG - OTHER] ORAL SCH ×2 (08:22→17:14)
[2016-10-28] MEDS: Aspirin Baby 81mg NG SCH (08:23)
[2016-10-28] MEDS: Flonase Nasal Inhaler 16gm NASAL SCH (08:24)
[2016-10-28] MEDS: Docusate 100mg cap ORAL SCH (08:45)
[2016-10-28] MEDS: Topiramate 100mg tab ORAL SCH ×2 (08:45→20:51)
[2016-10-28] MEDS: Heparin 5000 units/ml inj SUBQ SCH ×2 (08:52→20:53)
[2016-10-28 11:35] VITALS: BP 140/89
[2016-10-28] MEDS: cefTRIAXone 1 GM in D5W 55 ML IVPB SCH (14:33)
[2016-10-28 15:50] VITALS: BP 158/74
[2016-10-28 20:00] VITALS: BP 109/78
[2016-10-28] MEDS: Zolpidem 5mg tab ORAL PRN (22:08)
[2016-10-29] VITALS: BP 135/87
[2016-10-29] MEDS: DuoNeb 0.5-3(2.5)mg/3ml neb HHN SCH ×6 (03:21→23:33)
[2016-10-29 04:00] VITALS: BP 129/76
[2016-10-29] MEDS: Solu-MEDROL 40mg Inj IVP SCH ×3 (06:04→21:41)
[2016-10-29] MEDS: Cilostazol 100mg tab ORAL SCH (06:05)
[2016-10-29] MEDS: DiphenhydrAMINE 50mg/ml Inj IVP PRN ×5 (06:05→22:49)
[2016-10-29] MEDS: NovoLOG Insulin Flexpen SUBQ SCH ×4 (06:30→21:00)
[2016-10-29 08:01] VITALS: BP 135/80
[2016-10-29] MEDS: Topiramate 100mg tab ORAL SCH ×2 (08:03→21:27)
[2016-10-29] MEDS: Aspirin Baby 81mg NG SCH (08:03)
[2016-10-29] MEDS: Docusate 100mg cap ORAL SCH (08:04)
[2016-10-29] MEDS: Heparin 5000 units/ml inj SUBQ SCH ×2 (08:05→21:28)
[2016-10-29] MEDS: [UNRECOGNIZED DRUG - OTHER] ORAL SCH ×3 (09:27→21:27)
[2016-10-29] MEDS: Flonase Nasal Inhaler 16gm NASAL SCH (10:18)
--- NOTE | 2016-10-29 10:51 | Pulmonology Progress Note ---
Assessment/Plan Assessment/Plan Assessment dizziness leg edema ALOC COPD Asthma Diabetes shortness of breath Failure to thrive Plan not ready for discharge respiratory treatments and oxygen as is pain control and pain management head CT never done monitor clinically and dc once stable follow up exam closely and hope to dc in am for outpatient management Subjective Allergies: Coded Allergies: SIMVASTATIN (Verified Allergy, Severe, 04/01/14) ESTROGENS, CONJUGATED (Verified Allergy, Intermediate, 07/02/16) PALMS OF HANDS AND FEET TURN RED,ITCHING WITH BLISTERS Uncoded Allergies: red meat (Allergy, Severe, 01/29/14) pt has diverticulitis and gets severe nausea and vomiting Subjective still with pain and some sob some sob persistent Objective Last 24 Hour Vital Signs Date Time Temp Pulse Resp B/P Pulse Ox O2 Delivery O2 Flow Rate FiO2 10/29/16 10:28 94 18 95 Room Air 21 10/29/16 10:27 92 18 96 Room Air 10/29/16 10:27 95 18 96 Room Air 10/29/16 08:03 95 135/80 10/29/16 08:03 135/80 10/29/16 08:01 97.8 95 20 135/80 Room Air 10/29/16 07:46 94 20 99 Room Air 21 10/29/16 07:39 95 18 97 Room Air 10/29/16 07:39 97 18 Room Air 10/29/16 04:00 98.2 101 20 129/76 Room Air 10/29/16 03:22 97 24 93 Room Air 21 10/29/16 03:22 21 10/29/16 00:00 98.1 105 22 135/87 94 Room Air 10/28/16 23:24 99 24 98 Room Air 21 10/28/16 23:19 21 10/28/16 23:18 110 22 96 Room Air 21 10/28/16 20:00 98.6 107 20 109/78 94 Room Air 10/28/16 19:33 104 20 95 Room Air 21 10/28/16 19:32 21 10/28/16 19:31 105 24 94 Room Air 10/28/16 19:30 105 24 Room Air 21 10/28/16 18:23 96.4 10/28/16 15:50 96.4 97 18 158/74 97 Room Air 10/28/16 15:42 91 18 100 Room Air 21 10/28/16 15:34 88 18 94 Room Air 21 10/28/16 11:41 84 16 100 Room Air 21 10/28/16 11:35 97.2 94 18 140/89 98 Room Air 10/28/16 11:30 85 16 96 Room Air 21 Intake and Output 10/28/16 10/29/16 19:00 07:00 Intake Total 895 ml Balance 895 ml Intake Oral 840 ml IV Total 55 ml # Voids 4 2 # Bowel Movements 1 Objective WDWN NAD stable breath sounds bilaterally without rhonchi or wheeze [id number] without MRG NABS nontender no HSM no CCE nonfocal alert and oriented x 3 Microbiology Date/Time Source Procedure Growth Status 10/26/16 15:00 Sputum Expectorated Gram Stain - Final Complete 10/26/16 15:00 Sputum Expectorated Sputum Culture - Final NORMAL UPPER RESPIRATORY LAYLA AT 48 ... Complete Current Medications Medications (Trade) Dose Ordered Sig/Rosendo Route PRN Reason Start Time Stop Time Status Last Admin Dose Admin Acetaminophen (Tylenol) 650 mg Q4H PRN ORAL Mild Pain/Temp > 100.5 10/26/16 14:00 11/25/16 13:59 Al Hydroxide/Mg Hydroxide (Mylanta) 30 ml Q4HR PRN ORAL gastric upset 10/26/16 14:00 11/25/16 13:59 Albuterol/ Ipratropium (DuoNeb 0.5-3(2.5)mg/3ml) 3 ml Q4H PRN HHN Shortness of Breath 10/26/16 14:00 10/31/16 13:59 Albuterol/ Ipratropium (DuoNeb 0.5-3(2.5)mg/3ml) 3 ml Q4HRT HHN 10/26/16 15:00 10/31/16 14:59 10/29/16 10:26 Amlodipine Besylate (Norvasc) 10 mg DAILY ORAL 10/27/16 09:00 11/26/16 08:59 10/29/16 08:03 Aspirin (ASA) 81 mg DAILY NG 10/27/16 09:00 11/26/16 08:59 10/29/16 08:03 Atorvastatin Calcium (Lipitor) 40 mg BEDTIME ORAL 10/27/16 21:00 11/26/16 20:59 Budesonide/ Formoterol Fumarate (Symbicort 160/ 4.5) 2 puff TWICE A DAY INH 10/26/16 18:00 11/25/16 17:59 10/29/16 10:26 Carisoprodol (Soma) 350 mg BIDPRN PRN ORAL spasm 10/26/16 14:15 11/25/16 14:14 10/28/16 08:44 Ceftriaxone Sodium/Dextrose (Rocephin/D5W) 55 ml @ 110 mls/hr Q24H IVPB 10/26/16 15:00 11/02/16 14:59 10/28/16 14:33 Cetirizine HCl (ZyrTEC) 10 mg DAILY PRN ORAL ALLERGIES 10/26/16 14:30 11/25/16 14:29 Cilostazol (Pletal) 50 mg ACBREAKFAST ORAL 10/27/16 06:30 11/26/16 06:29 10/29/16 06:05 Dextrose (Dextrose 50%) STAT PRN IV Hypoglycemia 10/26/16 14:00 11/25/16 13:59 Diphenhydramine HCl (Benadryl) 25 mg Q4HR PRN IVP Itching 10/26/16 14:15 11/25/16 14:14 10/29/16 10:18 Docusate Sodium (Colace) 100 mg DAILY ORAL 10/27/16 09:00 11/26/16 08:59 10/29/16 08:04 Enalapril Maleate (Vasotec) 20 mg DAILY ORAL 10/27/16 09:00 11/26/16 08:59 10/29/16 08:03 Fluticasone Propionate (Flonase) 2 spray DAILY NASAL 10/26/16 18:00 11/25/16 17:59 10/29/16 10:18 Folic Acid (Folate) 1 mg DAILY ORAL 10/27/16 09:00 11/26/16 08:59 10/29/16 08:04 Gabapentin (Neurontin) 300 mg THREE TIMES A DAY ORAL 10/26/16 18:00 11/25/16 17:59 10/29/16 08:03 Heparin Sodium (Porcine) (Heparin 5000 units/ml) 5,000 units EVERY 12 HOURS SUBQ 10/26/16 21:00 11/25/16 20:59 10/29/16 08:05 Hydromorphone HCl (Dilaudid) 1 mg Q3HR PRN IVP moderate pain 10/26/16 14:00 11/02/16 13:59 Hydromorphone HCl (Dilaudid) 2 mg Q3HR PRN IVP severe pain 10/26/16 14:00 11/02/16 13:59 10/29/16 10:18 Insulin Aspart (NovoLOG) BEFORE MEALS AND HS SUBQ 10/26/16 16:30 11/25/16 16:29 10/28/16 17:18 Meclizine HCl (Antivert) 25 mg Q6H PRN ORAL for dizziness 10/26/16 14:15 11/25/16 14:14 Methylprednisolone Sodium Succinate 40 mg 40 mg EVERY 8 HOURS IVP 10/26/16 14:00 11/25/16 13:59 10/29/16 06:04 Multivitamins (Multivitamins) 1 tab DAILY ORAL 10/27/16 09:00 11/26/16 08:59 10/29/16 08:04 Ondansetron HCl (Zofran) 4 mg Q6H PRN IVP Nausea & Vomiting 10/26/16 14:00 11/25/16 13:59 10/28/16 13:48 Pantoprazole (Protonix) 40 mg ACBREAKFAST ORAL 10/28/16 06:30 11/27/16 06:29 10/29/16 06:05 Patient Own Medication (Patient's Own Med) 1 ea BID ORAL 10/27/16 09:00 11/26/16 08:59 10/29/16 09:27 Topiramate (Topamax) 100 mg EVERY 12 HOURS ORAL 10/26/16 21:00 11/25/16 20:59 10/29/16 08:03 Zolpidem Tartrate (Ambien) 10 mg HSPRN PRN ORAL Insomnia 10/26/16 14:00 11/25/16 13:59 10/28/16 22:08 TESSA PALACIOS Oct 29, 2016 10:51
[2016-10-29 12:00] VITALS: BP 131/76
[2016-10-29] MEDS: cefTRIAXone 1 GM in D5W 55 ML IVPB SCH (14:42)
[2016-10-29 15:57] VITALS: BP 148/75
[2016-10-29] MEDS ORDERED: NS 275ml ONE (16:39)
[2016-10-29 20:00] VITALS: BP 118/73
[2016-10-29] MEDS: Zolpidem 5mg tab ORAL PRN (21:42)
--- NOTE | 2016-10-29 22:40 | Diagnostic Imaging Report ---
APPROVED REPORT CPT Code: 93818 Present Symptoms Lower Extremity Pain: Bilateral Lower Extremity Edema: Bilateral Shortness of breath Comments: Hx diabetes. BILATERAL: Imaging reveals a patent deep venous system bilaterally. There is no evidence of thrombus within the femoral, popliteal or tibial segments. The greater saphenous veins are also within normal limits. Doppler indicates normal spontaneous flow within these segments.
[2016-10-30] VITALS: BP 131/89
[2016-10-30] MEDS: DuoNeb 0.5-3(2.5)mg/3ml neb HHN SCH ×2 (02:44→07:58)
[2016-10-30] MEDS: DiphenhydrAMINE 50mg/ml Inj IVP PRN ×2 (03:06→07:46)
[2016-10-30 04:00] VITALS: BP 158/98
[2016-10-30] MEDS: Solu-MEDROL 40mg Inj IVP SCH (06:06)
[2016-10-30] MEDS: NovoLOG Insulin Flexpen SUBQ SCH (06:07)
[2016-10-30] MEDS: Cilostazol 100mg tab ORAL SCH (06:07)
[2016-10-30 08:25] VITALS: BP 117/71
[2016-10-30] MEDS: Aspirin Baby 81mg NG SCH (08:40)
[2016-10-30] MEDS: Docusate 100mg cap ORAL SCH (08:42)
[2016-10-30] MEDS: Flonase Nasal Inhaler 16gm NASAL SCH (08:43)
[2016-10-30 08:47] VITALS: BP 117/71
[2016-10-30] MEDS: Heparin 5000 units/ml inj SUBQ SCH (08:47)
[2016-10-30] MEDS: [UNRECOGNIZED DRUG - OTHER] ORAL SCH (09:11)
[2016-10-30] MEDS: Topiramate 100mg tab ORAL SCH (09:11)
--- NOTE | 2016-10-30 09:35 | Pulmonology Progress Note ---
Assessment/Plan Assessment/Plan Assessment dizziness leg edema ALOC COPD Asthma Diabetes shortness of breath Failure to thrive Plan discharge today respiratory treatments and oxygen as is pain control and pain management monitor after dc home health dc steroids improved Subjective Allergies: Coded Allergies: SIMVASTATIN (Verified Allergy, Severe, 04/01/14) ESTROGENS, CONJUGATED (Verified Allergy, Intermediate, 07/02/16) PALMS OF HANDS AND FEET TURN RED,ITCHING WITH BLISTERS Uncoded Allergies: red meat (Allergy, Severe, 01/29/14) pt has diverticulitis and gets severe nausea and vomiting Subjective improved pain and some sob ready for discharge Objective Last 24 Hour Vital Signs Date Time Temp Pulse Resp B/P Pulse Ox O2 Delivery O2 Flow Rate FiO2 10/30/16 08:47 97 117/71 10/30/16 08:45 117/71 10/30/16 08:25 97.0 97 20 117/71 97 Room Air 10/30/16 07:58 96 18 99 Room Air 10/30/16 07:50 92 18 95 Room Air 10/30/16 04:00 96.4 92 20 158/98 93 10/30/16 02:43 Room Air 10/30/16 02:43 Room Air 10/30/16 00:00 97.0 91 20 131/89 93 Room Air 10/29/16 23:34 Room Air 10/29/16 23:33 Room Air 10/29/16 20:05 102 24 96 Room Air 10/29/16 20:05 102 18 Room Air 21 10/29/16 20:03 102 18 96 Room Air 10/29/16 20:00 96.8 106 20 118/73 92 Room Air 10/29/16 19:59 106 18 99 Room Air 21 10/29/16 19:50 102 18 95 Room Air 21 10/29/16 15:57 97.3 96 20 148/75 96 Room Air 10/29/16 15:43 88 18 99 Room Air 21 10/29/16 15:34 88 16 96 Room Air 21 10/29/16 12:00 97.7 98 20 131/76 96 Room Air 10/29/16 10:48 97.8 10/29/16 10:38 90 18 99 Room Air 21 10/29/16 10:28 94 18 95 Room Air 21 10/29/16 10:27 92 18 96 Room Air 21 10/29/16 10:27 95 18 96 Room Air Intake and Output 10/29/16 10/30/16 19:00 07:00 Intake Total 455 ml 250 ml Balance 455 ml 250 ml Intake Oral 400 ml 250 ml IV Total 55 ml # Voids 3 2 Objective WDWN NAD improved breath sounds bilaterally without rhonchi or wheeze [id number] without MRG NABS nontender no HSM no CCE nonfocal alert and oriented x 3 more mobile at present Current Medications Medications (Trade) Dose Ordered Sig/Rosendo Route PRN Reason Start Time Stop Time Status Last Admin Dose Admin Acetaminophen (Tylenol) 650 mg Q4H PRN ORAL Mild Pain/Temp > 100.5 10/26/16 14:00 11/25/16 13:59 Al Hydroxide/Mg Hydroxide (Mylanta) 30 ml Q4HR PRN ORAL gastric upset 10/26/16 14:00 11/25/16 13:59 Albuterol/ Ipratropium (DuoNeb 0.5-3(2.5)mg/3ml) 3 ml Q4H PRN HHN Shortness of Breath 10/26/16 14:00 10/31/16 13:59 Albuterol/ Ipratropium (DuoNeb 0.5-3(2.5)mg/3ml) 3 ml Q4HRT HHN 10/26/16 15:00 10/31/16 14:59 10/30/16 07:58 Amlodipine Besylate (Norvasc) 10 mg DAILY ORAL 10/27/16 09:00 11/26/16 08:59 10/30/16 08:47 Aspirin (ASA) 81 mg DAILY NG 10/27/16 09:00 11/26/16 08:59 10/30/16 08:40 Atorvastatin Calcium (Lipitor) 40 mg BEDTIME ORAL 10/27/16 21:00 11/26/16 20:59 Budesonide/ Formoterol Fumarate (Symbicort 160/ 4.5) 2 puff TWICE A DAY INH 10/26/16 18:00 11/25/16 17:59 10/30/16 07:59 Carisoprodol (Soma) 350 mg BIDPRN PRN ORAL spasm 10/26/16 14:15 11/25/16 14:14 10/28/16 08:44 Ceftriaxone Sodium/Dextrose (Rocephin/D5W) 55 ml @ 110 mls/hr Q24H IVPB 10/26/16 15:00 11/02/16 14:59 10/29/16 14:42 Cetirizine HCl (ZyrTEC) 10 mg DAILY PRN ORAL ALLERGIES 10/26/16 14:30 11/25/16 14:29 Cilostazol (Pletal) 50 mg ACBREAKFAST ORAL 10/27/16 06:30 11/26/16 06:29 10/30/16 06:07 Dextrose (Dextrose 50%) STAT PRN IV Hypoglycemia 10/26/16 14:00 11/25/16 13:59 Diphenhydramine HCl (Benadryl) 25 mg Q4HR PRN IVP Itching 10/26/16 14:15 11/25/16 14:14 10/30/16 07:46 Docusate Sodium (Colace) 100 mg DAILY ORAL 10/27/16 09:00 11/26/16 08:59 10/30/16 08:42 Enalapril Maleate (Vasotec) 20 mg DAILY ORAL 10/27/16 09:00 11/26/16 08:59 10/30/16 08:45 Fluticasone Propionate (Flonase) 2 spray DAILY NASAL 10/26/16 18:00 11/25/16 17:59 10/30/16 08:43 Folic Acid (Folate) 1 mg DAILY ORAL 10/27/16 09:00 11/26/16 08:59 10/30/16 08:40 Gabapentin (Neurontin) 300 mg THREE TIMES A DAY ORAL 10/26/16 18:00 11/25/16 17:59 10/30/16 08:42 Heparin Sodium (Porcine) (Heparin 5000 units/ml) 5,000 units EVERY 12 HOURS SUBQ 10/26/16 21:00 11/25/16 20:59 10/30/16 08:47 Hydromorphone HCl (Dilaudid) 1 mg Q3HR PRN IVP moderate pain 10/26/16 14:00 11/02/16 13:59 Hydromorphone HCl (Dilaudid) 2 mg Q3HR PRN IVP severe pain 10/26/16 14:00 11/02/16 13:59 10/30/16 07:47 Insulin Aspart (NovoLOG) BEFORE MEALS AND HS SUBQ 10/26/16 16:30 11/25/16 16:29 10/29/16 16:49 Meclizine HCl (Antivert) 25 mg Q6H PRN ORAL for dizziness 10/26/16 14:15 11/25/16 14:14 Methylprednisolone Sodium Succinate 40 mg 40 mg EVERY 8 HOURS IVP 10/26/16 14:00 11/25/16 13:59 10/30/16 06:06 Multivitamins (Multivitamins) 1 tab DAILY ORAL 10/27/16 09:00 11/26/16 08:59 10/30/16 08:42 Ondansetron HCl (Zofran) 4 mg Q6H PRN IVP Nausea & Vomiting 10/26/16 14:00 11/25/16 13:59 10/28/16 13:48 Pantoprazole (Protonix) 40 mg ACBREAKFAST ORAL 10/28/16 06:30 11/27/16 06:29 10/30/16 06:06 Patient Own Medication (Patient's Own Med) 1 ea BID ORAL 10/27/16 09:00 11/26/16 08:59 10/30/16 09:11 Topiramate (Topamax) 100 mg EVERY 12 HOURS ORAL 10/26/16 21:00 11/25/16 20:59 10/30/16 09:11 Zolpidem Tartrate (Ambien) 10 mg HSPRN PRN ORAL Insomnia 10/26/16 14:00 11/25/16 13:59 10/29/16 21:42 TESSA PALACIOS Oct 30, 2016 09:35
[2016-10-30] MEDS ORDERED: Tubing IV Secondary IV ONE (10:59)
--- NOTE | 2016-10-30 14:33 | Physician Query ---
PLEASE COMPLETE THE FORM BEFORE SIGNING Dear Dr. Harley Martinez Date October Claim Attorney/CDS SUSI Felipe Claim Attorney/CDS Phone #: [phone] Exercise your independent professional judgment when responding to query. Questions asked do not imply particular answer is desired or expected. We greatly appreciate your clarification on this issue. Clinical Documentation States: "shortness of breath" documented in the H/P of Dr. Harley Martinez. Clinical Findings Show: ABG:pO2=65.5 L HCO3=21.3 O2=91.5 RR:18,24,16,24 Tachypnea Respiratory Treatments Ordered. Please clarify if the patient had any of the following conditions based on the above clinical findings: []Respiratory Failure [] Acute [x] Chronic (on home O2) []Acute on Chronic [] Acute Respiratory Distress [] Acute Respiratory Insufficiency [] Respiratory failure due to trauma [] Respiratory insufficiency due to trauma [] Unable to determine [] Other: Condition Present on Admission: [x] Yes [] No []Clinically Undeterminable Please also document in your Progress Notes and/or Discharge Summary and indicate if the condition was present on admission. Harley Martinez Date/Time MTDD
--- NOTE | 2016-11-01 08:25 | Discharge Summary ---
Discharge Summary Hospital Course Date of Admission Oct 26, 2016 at 12:09 Date of Discharge Oct 30, 2016 at 11:00 Admitting Diagnosis HPI Mariola Brush is a 66 year old female who was admitted on Oct 26, 2016 at 12: 09 for Copd/Aloc/Dizziness Hospital Course [id number] Discharge Discharge Disposition Patient was discharged to Home with Home Health(06) Discharge Diagnoses: Marilyn Medina NP Nov 01, 2016 08:25
--- NOTE | 2016-11-01 15:00 | Discharge Summary 2 SIG ---
DATE OF ADMISSION: 10/26/2016 DATE OF DISCHARGE: 10/30/2016 BRIEF HOSPITAL COURSE: The patient is a 66-year-old female, who presented to the office for follow up of COPD. The patient reported low-grade fever, dizziness, and lightheadedness, and has been compliant with medications. She noted increasing leg swelling and numbness. She was admitted to telemetry for evaluation of dizziness and leg edema. Venous duplex of lower extremities showed patent deep venous system bilaterally. Negative for DVT. She had a chest x-ray done that showed no evidence of acute disease with stable chronic changes. She was given respiratory treatments, IV steroids and ceftriaxone. Sputum culture showed normal upper respiratory devan. The patient's symptoms improved and she was eventually discharged home with home health to follow up as an outpatient. FINAL DIAGNOSES: 1. Shortness of breath/ Acute respiratory distress. 2. Acute chronic obstructive pulmonary disease. 3. Asthma. 4. Diabetes mellitus. 5. Dizziness. 6. Leg edema. Harley Martinez M.D. I have been assigned to dictate discharge summary on this account and I was not involved in the patient's management. Marilyn Medina N.P. DR: KESHA JOB#: [id number] CC: LIEN
== END 2016-10-30 11:00 | disposition home health service (06) | DRG 191 ==
LOC: 4E 12:09
DX: J44.1 Chronic obstructive pulmonary disease with (acute) exacerbation (principal); J96.10 Chronic respiratory failure, unspecified whether with hypoxia or hypercapnia; R62.7 Adult failure to thrive; E11.9 Type 2 diabetes mellitus without complications; R42 Dizziness and giddiness; R60.9 Edema, unspecified; Z88.8 Allergy status to other drugs, medicaments and biological substances
CPT/HCPCS: 36415; 36600; 71010; 80048; 82803; 82962; 85025; 87070; 87205; 90732; 93970; 94640; 94664; J1815; J2405; J7620

== ENCOUNTER 2019-06-10 14:16 | Emergency (ER) | payer MEDICARE, MEDICAID ==
[~2019-06-10] VITALS: Ht 170.2 cm; Wt 90.7 kg
[2019-06-10 14:30] VITALS: BP 115/76
--- NOTE | 2019-06-10 14:30 | NUR ---
ED Nurse Note: Pt came in to ER d/t hx of syncope, dizziness. Per pt she had loss of consciousness and hit her head. Pt is AOx4, calm and cooperative. GCS 15 as of now. Placed on bed, gown, hooked to experimental rocketsled mechanic.
--- NOTE | 2019-06-10 15:02 | NUR ---
ED Nurse Note: Pt went on CT via wheelchair accompanied by tech.
--- NOTE | 2019-06-10 15:33 | NUR ---
ED Nurse Note: ERPA on bedside.
--- NOTE | 2019-06-10 16:16 | Diagnostic Imaging Report ---
Indications: Headache, status post fall Technique: Spiral acquisitions obtained through the brain. Angled axial and coronal 5 x 5 mm slices were reconstructed. Total dose length product 1332 mGycm. CTDI vol(s) 62 mGy. Dose reduction achieved using automated exposure control Comparison: None. Findings: No acute intracranial hemorrhage or edema. No mass effect nor midline shift. Normal lockwood-white differentiation. Normal size, for age, ventricles and extra-axial CSF spaces. There is minimal periventricular deep white matter low-attenuation, consistent with chronic microvascular ischemic change. Visualized orbits and sinuses are unremarkable. The mastoids are clear Impression: Minimal age-related changes. Negative for acute intracranial bleed or mass effect The CT scanner at [facility] is accredited by the [employer] and the scans are performed using protocols designed to limit radiation exposure to as low as reasonably achievable to attain images of sufficient resolution adequate for diagnostic evaluation.
[2019-06-10 16:22] LABS: BASOPHILS % (AUTO) 1.4 % (0.0-2.0); HEMOGLOBIN 13.6 G/DL (12.0-16.0); LYMPHOCYTES % (AUTO) 43.8 % (20.0-45.0); MEAN CORPUSCULAR VOLUME 82 FL (80-99); MONOCYTES % (AUTO) 8.5 % (1.0-10.0); NEUTROPHILS % (AUTO) 44.4 % (45.0-75.0); PLATELET COUNT 271 K/UL (150-450); RED BLOOD COUNT 5.14 M/UL (4.20-5.40); RED CELL DISTRIBUTION WIDTH 13.9 % (11.6-14.8); WHITE BLOOD COUNT 7.9 K/UL (4.8-10.8)
[2019-06-10 16:36] LABS: ANION GAP 12 mmol/L (5-15); BLOOD UREA NITROGEN 11 mg/dL (7-18); CALCIUM 9.5 MG/DL (8.5-10.1); CARBON DIOXIDE 26 MMOL/L (21-32); CHLORIDE 105 MMOL/L (98-107); CREATININE 1.2 MG/DL (0.55-1.30); POTASSIUM 3.8 MMOL/L (3.5-5.1); SODIUM 143 MMOL/L (136-145)
[2019-06-10 16:39] LABS: ALANINE AMINOTRANSFERASE 24 U/L (12-78); ALBUMIN 3.3 G/DL (3.4-5.0); ALBUMIN/GLOBULIN RATIO 0.7 (1.0-2.7); ALKALINE PHOSPHATASE 198 U/L (46-116); ASPARTATE AMINO TRANSFERASE 13 U/L (15-37); BILIRUBIN,TOTAL 0.1 MG/DL (0.2-1.0)
--- NOTE | 2019-06-10 16:48 | Diagnostic Imaging Report ---
Indication: Neck pain, status post trauma Technique: Spiral acquisitions obtained through the cervical spine. No IV contrast utilized. Multiplanar reconstructions were generated. Total dose length product 177 mGycm. CTDIvol(s) 9 mGy. Dose reduction achieved using automated exposure control. Comparison: none Findings: Bony alignment is normal. There is degenerative remodeling of the lower cervical vertebral bodies, vertebral body heights otherwise preserved. No prevertebral soft tissue swelling.. No acute fractures. No dislocations. There is degenerative narrowing of the anterior atlantoaxial joint, as well as degenerative narrowing of the bilateral lateral occipital joints. There is mild degenerative narrowing of the C2-3 disc. There is moderate left neural foraminal stenosis. No significant disc bulge or protrusion or spinal stenosis. There is evidence of ankylosis of the right facet and arthrosis of the left facet. There is moderate to severe narrowing of the C3-4 disc. There is severe bilateral neural foraminal stenosis. Posterior osteophytes result in mild to moderate narrowing of the spinal canal. There is bilateral facet arthrosis There is moderate narrowing of the C4-5 disc. There is severe narrowing of the bilateral neural foramina. Posterior osteophytes result in mild narrowing of the spinal canal. There is bilateral facet arthrosis. There is moderate to severe narrowing of the C5-6 disc. There is severe narrowing of bilateral neural foramina. Posterior osteophytes result in moderate narrowing of the spinal canal. There is bilateral facet arthrosis. There is moderate to severe narrowing of the C6-7 disc. There is moderate narrowing of the bilateral neural foramina. Posterior osteophytes result in mild narrowing of the spinal canal. There is bilateral facet arthrosis. There is moderate to severe narrowing of the C7-T1 disc. No significant disc bulge or protrusion or spinal stenosis. There is mild narrowing of the bilateral neural foramina. There is bilateral facet arthrosis. The included extraspinal soft tissues and upper aerodigestive tract are unremarkable.. Impression: No acute bony trauma Multiple degenerative changes, as detailed on a level by level basis above The CT scanner at [facility] is accredited by the [employer] and the scans are performed using protocols designed to limit radiation exposure to as low as reasonably achievable to attain images of sufficient resolution adequate for diagnostic evaluation.
[2019-06-10 17:04] LABS: INR 0.9 (0.9-1.1)
[2019-06-10] MEDS ORDERED: TYLENOL EXTRA500 MG ORAL (17:13)
[2019-06-10] MEDS ORDERED: MECLIZINE HCL25 MG ORAL (17:13)
--- NOTE | 2019-06-10 17:13 | Emergency Room Report ---
History of Present Illness General Chief Complaint: Head Injury Source: Patient Present Illness HPI 68-year-old female who is morbidly obese history of type 2 diabetes and hypertension here complaining of head injury after getting dizzy earlier today and falling front of her head in a store. Patient complains of loss of consciousness and dizziness. Reports that she has been dizzy for about a few weeks now upon sitting and standing. Has not yet addressed this to her primary care physician. Denies chest pain, blurry vision, shortness of breath, urinary symptoms pre-denies abdominal pain nausea vomiting. Denies drinking alcohol and drug use. Denies tobacco smoke. Has stable vital signs. Denies fever and chills no recent travel. Denies other injuries at this time. Patient is neurovascularly intact, no unilateral or generalized weakness noted Allergies: Coded Allergies: SIMVASTATIN (Verified Allergy, Severe, 04/01/14) ESTROGENS, CONJUGATED (Verified Allergy, Intermediate, 07/02/16) PALMS OF HANDS AND FEET TURN RED,ITCHING WITH BLISTERS Uncoded Allergies: red meat (Allergy, Severe, 01/29/14) pt has diverticulitis and gets severe nausea and vomiting Patient History Past Medical History: see triage record Past Surgical History: unable to obtain Pertinent Family History: none Now: No Immunizations: UTD Reviewed Nursing Documentation: PMH: Agreed; PSxH: Agreed Nursing Documentation-PMH Past Medical History: No History, Except For Hx Hypertension: Yes - HYPERLIPIDEMIA Hx Asthma: Yes Hx COPD: Yes - GERD Hx Diabetes: Yes - type 2 Hx Cancer: No Hx Gastrointestinal Problems: Yes Hx Neurological Problems: Yes Hx Transient Ischemic Attacks: Yes Hx Seizures: Yes Hx Peripheral Neuropathy: Yes Hx Numbness: Yes - feet and hands Hx Weakness: Yes - left side Review of Systems All Other Systems: negative except mentioned in HPI Physical Exam Vital Signs Date Time Temp Pulse Resp B/P (MAP) Pulse Ox O2 Delivery O2 Flow Rate FiO2 06/10/19 14:23 97.7 91 16 115/76 (89) 90 Room Air Sp02 EP Interpretation: reviewed, normal General Appearance: no apparent distress, alert, GCS 15, non-toxic Head: normocephalic, atraumatic Eyes: bilateral eye normal inspection, bilateral eye PERRL ENT: hearing grossly normal, normal pharynx, no angioedema, normal voice Neck: full range of motion, supple/symm/no masses Respiratory: chest non-tender, lungs clear, normal breath sounds, no rhonchi, speaking full sentences Cardiovascular #1: regular rate, rhythm, no edema, no murmur Gastrointestinal: normal bowel sounds, non tender, soft, non-distended, no guarding, no rebound Rectal: deferred Genitourinary: no CVA tenderness Musculoskeletal: back normal, no calf tenderness Neurologic: alert, motor strength/tone normal, oriented x3, sensory intact, responsive, speech normal Psychiatric: judgement/insight normal, memory normal, mood/affect normal, no suicidal/homicidal ideation Skin: no rash Lymphatic: no adenopathy Medical Decision Making PA Attestation All my diagnosis and treatment plans were reviewed ad discussed with my supervising physician Dr. Simmons Diagnostic Impression: Primary Impression: Head contusion Additional Impression: Dizziness, nonspecific ER Course 68-year-old female who is morbidly obese history of type 2 diabetes and hypertension here complaining of head injury after getting dizzy earlier today and falling front of her head in a store. Patient complains of loss of consciousness and dizziness. Reports that she has been dizzy for about a few weeks now upon sitting and standing. Has not yet addressed this to her primary care physician. Denies chest pain, blurry vision, shortness of breath, urinary symptoms pre-denies abdominal pain nausea vomiting. Denies drinking alcohol and drug use. Denies tobacco smoke. Has stable vital signs. Denies fever and chills no recent travel. Denies other injuries at this time. Patient is neurovascularly intact, no unilateral or generalized weakness noted adamant about to discharge patient patient notifies me that she has been actually experiencing urinary frequency and urgency and white clumpy discharge with pruritus in the past few days. Denies being sexually active. Never gave urine sample, and was treated prophylactically Ddx considered but are not limited to: cerebral hematoma, concussion, skull fracture, head contusion dizziness secondary to hypertension, dizziness secondary to hypoglycemia, unspecified dizziness, TIA, CVA Vital signs: are WNL, pt. is afebrile H&PE are most consistent with: Unspecified dizziness, head contusion ORDERS: Stroke order set, head CT no contrast, Tylenol, meclizine, Macrobid, Diflucan ED INTERVENTIONS: NS bolus DISCHARGE: At this time pt. is stable for d/c to home. Will provide printed patient care instructions, and any necessary prescriptions. Care plan and follow up instructions have been discussed with the patient prior to discharge. Patient to follow primary care provider, take medication as directed, may need to be referred to neurologist and a r collections rep regarding her symptoms. If worsening symptoms return to the emergency room EKG Diagnostic Results Rate: normal Rhythm: NSR ST Segments: no acute changes Other Impression No acute ST changes Chest X-Ray Diagnostic Results Chest X-Ray Diagnostic Results : Chest X-Ray Ordered: Yes # of Views/Limited/Complete: 1 View Indication: Other EP Interpretation: Yes ELIZABETH Xray: Interpretation reviewed, by supervising MD, and agrees with findings. Interpretation: no consolidation, no effusion, no pneumothorax Impression: No acute disease Electronically Signed by: Becki Pace PA-C CT/MRI/US Diagnostic Results CT/MRI/US Diagnostic Results : Imaging Test Ordered: Head CT no contrast Impression Within normal limits, no intracranial bleed, no skull fracture Last Vital Signs Date Time Temp Pulse Resp B/P (MAP) Pulse Ox O2 Delivery O2 Flow Rate FiO2 06/10/19 14:30 97.7 68 16 115/76 90 Room Air Status: improved Disposition: HOME, SELF-CARE Condition: Stable Scripts Fluconazole (FLUCONAZOLE) 100 Mg Tablet 150 MG ORAL DAILY for 3 Days, #3 TAB 0 Refills Prov: Becki Young 06/10/19 Nitrofurantoin Monohyd/M-Cryst* (MACROBID 100 MG*) 100 Mg Capsule 100 MG ORAL EVERY 12 HOURS for 7 Days, #14 CAP Prov: Becki Young 06/10/19 Acetaminophen* (TYLENOL EXTRA STRENGTH*) 500 Mg Tablet 500 MG ORAL Q8H PRN for Prn Headache/Temp > 101, #30 TAB 0 Refills Prov: Becki Young 06/10/19 Meclizine Hcl* (MECLIZINE*) 25 Mg Tablet 25 MG ORAL THREE TIMES A DAY, #15 TAB Prov: Becki Young 06/10/19 Patient Instructions: Dizziness, [id number], Facial or Scalp Contusion, Easy- to-Read Additional Instructions: Take medication as directed, follow-up with your primary care provider, increase oral hydration, if worsening symptoms return to emergency room Becki Young Jun 10, 2019 17:12
[2019-06-10] MEDS ORDERED: NITROFURANTOIN100 M2 ORAL (17:21)
[2019-06-10] MEDS ORDERED: FLUCONAZOLE100 MG ORAL (17:21)
--- NOTE | 2019-06-10 17:44 | Diagnostic Imaging Report ---
Indication: Chest pain Technique: One view of the chest Comparison: 10/26/2016 Findings: Less optimal inspiration currently. Lungs and pleural spaces are clear. The heart size is normal. The aorta is tortuous and ectatic. The upper mediastinum is unremarkable Impression: No acute process
[2019-06-10 18:00] VITALS: BP 125/80
--- NOTE | 2019-06-10 18:00 | NUR ---
ER DISCHARGE NOTE: Patient is cleared to be discharged per ERPA, pt is aox4, on room air, with stable vital signs. pt was given dc and prescription instructions, pt was able to verbalize understanding, pt id band and iv site removed without complications. pt is able to ambulate with steady gait. pt took all belongings.
== END 2019-06-10 18:00 | disposition home or self-care (01) ==
LOC: EMR 14:50
DX: S00.93XA Contusion of unspecified part of head, initial encounter (principal); R42 Dizziness and giddiness; E66.9 Obesity, unspecified; I10 Essential (primary) hypertension; Z68.31 Body mass index [BMI] 31.0-31.9, adult; E11.42 Type 2 diabetes mellitus with diabetic polyneuropathy; E78.5 Hyperlipidemia, unspecified; K21.9 Gastro-esophageal reflux disease without esophagitis; Z86.73 Personal history of transient ischemic attack (TIA), and cerebral infarction without residual deficits
CPT/HCPCS: 36415; 70450; 71045; 72125; 80053; 82962; 84484; 85025; 85610; 85730; 86900; 86901; 99284